=== PATIENT | male | born 1995 | race Hispanic/Latino ===

== ENCOUNTER 2018-04-20 19:32 | Emergency (ER) | payer SELFPAY ==
--- NOTE | 2018-04-20 19:50 | EDM.PDOC ---
ED HPI GENERAL MEDICAL PROBLEM - General Chief Complaint: Upper Extremity Injury/Pain Stated Complaint: PT HANDS NUMB Time Seen by Provider: 04/20/18 19:50 Source of Information: Reports: Patient History Limitations: Reports: No Limitations - History of Present Illness INITIAL COMMENTS - FREE TEXT/NARRATIVE: HISTORY AND PHYSICAL: History of present illness: 22-year-old Greek only speaking male presenting to the emergency department with chief complaint of bilateral hand numbness and tingling 2 hours. Patient's brother is present and helps with translation. Patient states that he was driving approximately 2 hours ago and suddenly began to have numbness and tingling in both hands. States that his hands have been clinched ever since and it is difficult for him to even open them. When he presented to the emergency department he states that the numbness and tingling has spread to his forearms and above. He also had some numbness and tingling in his feet and legs. States that he has the sensation that he may . In the emergency room he had 2 episodes of vomiting. Patient denies any stresses in his life or work. He was feeling his normal usual self until the suddenly occurred. Denies any recent illness, fever or chills. Does state that his older brother had a similar episode happen to him but he has never had this problem previously. He denies any chest pain or heaviness. He is having some abdominal pain generalized. This occurred suddenly as well. Denies any dysuria, hematuria, bloody stool, dark tarry stool, headache, vision changes, cough, ear pain, throat pain, shortness of breath, palpitations or recent syncopal episodes. Patient is normally healthy and takes no medication and has no known allergies. On exam patient appears anxious and is mildly diaphoretic. He is rocking in a seated position. Bilateral hands are clenched in a fist. On exam patient states that he cannot open his hands however I am able to open them manually. When I do this he states that he has pain in the anterior aspect of the forearm bilaterally. As soon as I let go of his hands he does contract back into a fist position. Otherwise full neuro exam is unremarkable showing no other focal neurologic deficits. Patient has generalized abdominal tenderness but specifically in the right upper quadrant and epigastric area. Abdomen is soft, nondistended, nonrigid. There are positive all sounds in all 4 quadrants. No other significant findings. Review of systems: As per history of present illness and below otherwise all systems reviewed and negative. Past medical history: As per history of present illness and as reviewed below otherwise noncontributory. Surgical history: As per history of present illness and as reviewed below otherwise noncontributory. Social history: No reported history of drug or alcohol abuse. Family history: As per history of present illness and as reviewed below otherwise noncontributory. Physical exam: See above H&P HEENT: Atraumatic, normocephalic, pupils reactive, negative for conjunctival pallor or scleral icterus, mucous membranes moist, throat clear, neck supple, nontender, trachea midline. Lungs: Clear to auscultation, breath sounds equal bilaterally, chest nontender. Heart: S1S2, regular, negative for clicks, rubs, or JVD. Abdomen: Soft, nondistended, RUQ and epigastric tenderness. Negative for masses or hepatosplenomegaly. Negative for costovertebral tenderness. Pelvis: Stable nontender. Genitourinary: Deferred. Rectal: Deferred. Extremities: Atraumatic, negative for cords or calf pain. Neurovascular unremarkable. Neuro: Awake, alert, oriented. Cranial nerves II through XII unremarkable. Cerebellum unremarkable. See above H&P Diagnostics: CBC, CMP, lipase, UA/UC, UDS, troponin, CT abdomen and pelvis, EKG Therapeutics: 1 L normal saline 1, 1 mg Ativan IV 1 Impression: Anxiety attack Nausea with vomiting Plan: CBC did show some mild leukocytosis of 14,000 however this was most likely secondary to his nausea and vomiting as he remained afebrile and had no other symptoms. No other significant findings were seen including on CT of abd/pelvis His symptoms most likely suggest an anxiety attack. Patient had significant improvement after 1 mg Ativan. He was able to open his hands and had no more pain. Suspect that he did have some component of hyperventilation which may have contributed to his contractures in his hands. I did explain this to the patient and suggested that he follow-up with her primary care provider and possibly get started on a antidepressant that may help with his anxiety. Patient was in full understanding and was instructed to return to emergency department if he had a new or worsening symptoms. Definitive disposition and diagnosis as appropriate pending reevaluation and review of above. bilateral hands Pain Score (Numeric/FACES): 10 - Related Data Allergies Allergy/AdvReac Type Severity Reaction Status Date / Time No Known Allergies Allergy Verified 04/20/18 19:50 Home Meds: Home Meds . [No Known Home Meds] 04/20/18 [History] Review of Systems - Review of Systems Review Of Systems: ROS reveals no pertinent complaints other than HPI. ED EXAM, GENERAL - Physical Exam Exam: See Below Course - Vital Signs Last Recorded V/S: Last Vital Signs Temp 97.5 F 04/20/18 19:47 Pulse 98 04/20/18 21:59 Resp 19 04/20/18 19:47 BP 119/76 04/20/18 21:59 Pulse Ox 98 04/20/18 21:59 - Orders/Labs/Meds Orders: Active Orders 24 hr Category Date Time Status EKG Documentation Completion [RC] STAT Care 04/20/18 20:35 Active Abdomen Pelvis w Cont [CT] Stat Exams 04/20/18 20:16 Taken CULTURE URINE [RM] Stat Lab 04/20/18 20:58 Received Sodium Chloride 0.9% [Saline Flush] Med 04/20/18 20:16 Active 10 ml FLUSH ASDIRECTED PRN Sodium Chloride 0.9% [Saline Flush] Med 04/20/18 20:16 Active 2.5 ml FLUSH ASDIRECTED PRN Sodium Chloride 0.9% [Saline Flush] Med 04/20/18 20:16 Active 2.5 ml FLUSH ASDIRECTED PRN Saline Lock Insert [OM.PC] Stat Oth 04/20/18 20:16 Ordered Medication Orders Sodium Chloride (Saline Flush) 2.5 ml FLUSH ASDIRECTED PRN PRN Reason: Keep Vein Open Last Admin: 04/20/18 20:33 Dose: 2.5 ml Sodium Chloride (Saline Flush) 10 ml FLUSH ASDIRECTED PRN PRN Reason: Keep Vein Open Last Admin: 04/20/18 20:33 Dose: 10 ml Sodium Chloride (Saline Flush) 2.5 ml FLUSH ASDIRECTED PRN PRN Reason: Keep Vein Open Last Admin: 04/20/18 20:33 Dose: 2.5 ml Labs: Laboratory Tests 04/20/18 04/20/18 04/20/18 Range/Units 20:22 20:22 20:22 WBC 14.43 H (4.0-11.0) K/uL RBC 5.56 (4.50-5.90) M/uL Hgb 17.5 H (13.0-17.0) g/dL Hct 49.2 (38.0-50.0) % MCV 88.5 (80.0-98.0) fL MCH 31.5 (27.0-32.0) pg MCHC 35.6 (31.0-37.0) g/dL RDW Std Deviation 42.3 (28.0-62.0) fl RDW Coeff of Sb 13 (11.0-15.0) % Plt Count 309 (150-400) K/uL MPV 10.90 (7.40-12.00) fL Neut % (Auto) 83.0 H (48.0-80.0) % Lymph % (Auto) 10.2 L (16.0-40.0) % Haines % (Auto) 5.9 (0.0-15.0) % Eos % (Auto) 0.1 (0.0-7.0) % Baso % (Auto) 0.8 (0.0-1.5) % Neut # (Auto) 12.0 H (1.4-5.7) K/uL Lymph # (Auto) 1.5 (0.6-2.4) K/uL Haines # (Auto) 0.9 H (0.0-0.8) K/uL Eos # (Auto) 0.0 (0.0-0.7) K/uL Baso # (Auto) 0.1 (0.0-0.1) K/uL Nucleated RBC % 0.0 /100WBC Nucleated RBCs # 0 K/uL ABG Carboxyhemoglobin 1.6 (0-15) % Sodium 143 (136-148) mmol/L Potassium 3.4 L (3.5-5.1) mmol/L Chloride 98 (98-107) mmol/L Carbon Dioxide 20.8 L (21.0-32.0) mmol/L BUN 12 (7.0-18.0) mg/dL Creatinine 1.1 (0.8-1.3) mg/dL Est Cr Clr Drug Dosing 73.23 mL/min Estimated GFR (MDRD) > 60.0 ml/min Glucose 178 H (74-106) mg/dL Calcium 9.8 (8.5-10.1) mg/dL Total Bilirubin 0.8 (0.2-1.0) mg/dL AST 31 (15-37) IU/L ALT 55 (14-63) IU/L Alkaline Phosphatase 71 (46-116) U/L Troponin I (0.000-0.056) ng/mL Total Protein 9.3 H (6.4-8.2) g/dL Albumin 5.4 H (3.4-5.0) g/dL Globulin 3.9 H (2.0-3.5) g/dL Albumin/Globulin Ratio 1.4 (1.3-2.8) Lipase 66 L (73-393) U/L Urine Color Urine Appearance Urine pH (5.0-8.0) Ur Specific Crittenden (1.001-1.035) Urine Protein (NEGATIVE) mg/dL Urine Glucose (UA) (NEGATIVE) mg/dL Urine Ketones (NEGATIVE) mg/dL Urine Occult Blood (NEGATIVE) Urine Nitrite (NEGATIVE) Urine Bilirubin (NEGATIVE) Urine Urobilinogen (<2.0) EU/dL Ur Leukocyte Esterase (NEGATIVE) Urine RBC (0-2/HPF) Urine WBC (0-5/HPF) Ur Epithelial Cells (NONE-FEW) Amorphous Sediment (NEGATIVE) Urine Bacteria (NEGATIVE) Urine Mucus (NONE-MOD) Urine Opiates Screen (NEGATIVE) Ur Oxycodone Screen (NEGATIVE) Urine Methadone Screen (NEGATIVE) Ur Barbiturates Screen (NEGATIVE) Ur Phencyclidine Scrn (NEGATIVE) Ur Amphetamine Screen (NEGATIVE) U Methamphetamines Scrn (NEGATIVE) U Benzodiazepines Scrn (NEGATIVE) U Cocaine Metab Screen (NEGATIVE) U Marijuana (THC) Screen (NEGATIVE) 04/20/18 04/20/18 04/20/18 Range/Units 20:22 20:58 20:58 WBC (4.0-11.0) K/uL RBC (4.50-5.90) M/uL Hgb (13.0-17.0) g/dL Hct (38.0-50.0) % MCV (80.0-98.0) fL MCH (27.0-32.0) pg MCHC (31.0-37.0) g/dL RDW Std Deviation (28.0-62.0) fl RDW Coeff of Sb (11.0-15.0) % Plt Count (150-400) K/uL MPV (7.40-12.00) fL Neut % (Auto) (48.0-80.0) % Lymph % (Auto) (16.0-40.0) % Haines % (Auto) (0.0-15.0) % Eos % (Auto) (0.0-7.0) % Baso % (Auto) (0.0-1.5) % Neut # (Auto) (1.4-5.7) K/uL Lymph # (Auto) (0.6-2.4) K/uL Haines # (Auto) (0.0-0.8) K/uL Eos # (Auto) (0.0-0.7) K/uL Baso # (Auto) (0.0-0.1) K/uL Nucleated RBC % /100WBC Nucleated RBCs # K/uL ABG Carboxyhemoglobin (0-15) % Sodium (136-148) mmol/L Potassium (3.5-5.1) mmol/L Chloride (98-107) mmol/L Carbon Dioxide (21.0-32.0) mmol/L BUN (7.0-18.0) mg/dL Creatinine (0.8-1.3) mg/dL Est Cr Clr Drug Dosing mL/min Estimated GFR (MDRD) ml/min Glucose (74-106) mg/dL Calcium (8.5-10.1) mg/dL Total Bilirubin (0.2-1.0) mg/dL AST (15-37) IU/L ALT (14-63) IU/L Alkaline Phosphatase (46-116) U/L Troponin I < 0.050 (0.000-0.056) ng/mL Total Protein (6.4-8.2) g/dL Albumin (3.4-5.0) g/dL Globulin (2.0-3.5) g/dL Albumin/Globulin Ratio (1.3-2.8) Lipase (73-393) U/L Urine Color DARK YELLOW Urine Appearance HAZY Urine pH 6.0 (5.0-8.0) Ur Specific Crittenden >= 1.030 (1.001-1.035) Urine Protein 100 (NEGATIVE) mg/dL Urine Glucose (UA) NEGATIVE (NEGATIVE) mg/dL Urine Ketones 40 H (NEGATIVE) mg/dL Urine Occult Blood NEGATIVE (NEGATIVE) Urine Nitrite NEGATIVE (NEGATIVE) Urine Bilirubin NEGATIVE (NEGATIVE) Urine Urobilinogen 0.2 (<2.0) EU/dL Ur Leukocyte Esterase NEGATIVE (NEGATIVE) Urine RBC 0-2 (0-2/HPF) Urine WBC 0-3 (0-5/HPF) Ur Epithelial Cells RARE (NONE-FEW) Amorphous Sediment LIGHT (NEGATIVE) Urine Bacteria FEW (NEGATIVE) Urine Mucus LIGHT (NONE-MOD) Urine Opiates Screen NEGATIVE (NEGATIVE) Ur Oxycodone Screen NEGATIVE (NEGATIVE) Urine Methadone Screen NEGATIVE (NEGATIVE) Ur Barbiturates Screen NEGATIVE (NEGATIVE) Ur Phencyclidine Scrn NEGATIVE (NEGATIVE) Ur Amphetamine Screen NEGATIVE (NEGATIVE) U Methamphetamines Scrn NEGATIVE (NEGATIVE) U Benzodiazepines Scrn NEGATIVE (NEGATIVE) U Cocaine Metab Screen NEGATIVE (NEGATIVE) U Marijuana (THC) Screen NEGATIVE (NEGATIVE) Meds: Medications Generic Name Dose Route Start Last Admin Trade Name Freq PRN Reason Stop Dose Admin Sodium Chloride 2.5 ml 04/20/18 20:16 04/20/18 20:33 Saline Flush FLUSH 2.5 ml ASDIRECTED PRN Administration Keep Vein Open Sodium Chloride 10 ml 04/20/18 20:16 04/20/18 20:33 Saline Flush FLUSH 10 ml ASDIRECTED PRN Administration Keep Vein Open Sodium Chloride 2.5 ml 04/20/18 20:16 04/20/18 20:33 Saline Flush FLUSH 2.5 ml ASDIRECTED PRN Administration Keep Vein Open Discontinued Medications Generic Name Dose Route Start Last Admin Trade Name Freq PRN Reason Stop Dose Admin Sodium Chloride 1,000 mls @ 999 mls/hr 04/20/18 20:16 04/20/18 20:33 Normal Saline IV 04/20/18 21:16 999 mls/hr BOLUS ONE Administration Iopamidol 100 ml 04/20/18 21:45 04/20/18 21:45 Isovue Multipack-370 (76%) IVPUSH 04/20/18 21:46 100 ml ONETIME STA Administration Lorazepam 1 mg 04/20/18 19:55 04/20/18 20:00 Ativan PO 04/20/18 19:56 1 mg ONETIME ONE Administration Lorazepam 1 mg 04/20/18 20:06 04/20/18 20:38 Ativan PO 04/20/18 20:07 Not Given ONETIME ONE Lorazepam 1 mg 04/20/18 20:16 04/20/18 20:38 Ativan IVPUSH 04/20/18 20:17 1 mg ONETIME ONE Administration Ondansetron HCl 4 mg 04/20/18 20:16 04/20/18 20:33 Zofran IVPUSH 04/20/18 20:17 4 mg ONETIME ONE Administration Departure - Departure Time of Disposition: 22:15 Disposition: Home, Self-Care 01 Condition: Good Clinical Impression: Anxiety attack Nausea and vomiting Qualifiers: Vomiting type: unspecified Vomiting Intractability: non-intractable Qualified Code(s): R11.2 - Nausea with vomiting, unspecified - Discharge Information Referrals: PCP,None [Primary Care Provider] - Forms: ED Department Discharge Additional Instructions: My general discharge The following information is given to patients seen in the emergency department who are being discharged to home. This information is to outline your options for follow-up care. We provide all patients seen in our emergency department with a follow-up referral. The need for follow-up, as well as the timing and circumstances, are variable depending upon the specifics of your emergency department visit. If you don't have a primary care physician on staff, we will provide you with a referral. We always advise you to contact your personal physician following an emergency department visit to inform them of the circumstance of the visit and for follow-up with them and/or the need for any referrals to a consulting specialist. The emergency department will also refer you to a specialist when appropriate. This referral assures that you have the opportunity for follow-up care with a specialist. All of these measure are taken in an effort to provide you with optimal care, which includes your follow-up. Under all circumstances we always encourage you to contact your private physician who remains a resource for coordinating your care. When calling for follow-up care, please make the office aware that this follow-up is from your recent emergency room visit. If for any reason you are refused follow-up, please contact the [facility] Emergency Department at and asked to speak to the emergency department charge nurse. NATALIIA [facility] [address] [place] [address] [facility] [address] [place] [address] Please call one of the about numbers on Saturday to schedule a follow-up appointment with a primary care physician. Be sure to tell them that you were seen in the emergency department and they wish for you to be seen as soon as possible. Return to the emergency department if you have any new or worsening symptoms. - My Orders Last 24 Hours: My Active Orders 04/20/18 20:16 Abdomen Pelvis w Cont [CT] Stat Sodium Chloride 0.9% [Saline Flush] 10 ml FLUSH ASDIRECTED PRN Sodium Chloride 0.9% [Saline Flush] 2.5 ml FLUSH ASDIRECTED PRN Sodium Chloride 0.9% [Saline Flush] 2.5 ml FLUSH ASDIRECTED PRN Saline Lock Insert [OM.PC] Stat 04/20/18 20:35 EKG Documentation Completion [RC] STAT 04/20/18 20:58 CULTURE URINE [RM] Stat - Assessment/Plan Last 24 Hours: My Active Orders 04/20/18 20:16 Abdomen Pelvis w Cont [CT] Stat Sodium Chloride 0.9% [Saline Flush] 10 ml FLUSH ASDIRECTED PRN Sodium Chloride 0.9% [Saline Flush] 2.5 ml FLUSH ASDIRECTED PRN Sodium Chloride 0.9% [Saline Flush] 2.5 ml FLUSH ASDIRECTED PRN Saline Lock Insert [OM.PC] Stat 04/20/18 20:35 EKG Documentation Completion [RC] STAT 04/20/18 20:58 CULTURE URINE [RM] Stat
[2018-04-20] MEDS ORDERED: LORazepam 1 MG Tab PO ONE (19:55)
[2018-04-20] MEDS: LORazepam 1 MG Tab PO ONE ×2 (20:13→20:38)
[2018-04-20] MEDS ORDERED: Sodium Chloride 0.9% 10 ML Syringe FLUSH PRN (20:16)
[2018-04-20] MEDS ORDERED: Sodium Chloride 0.9% 2.5 ML Syringe FLUSH PRN ×2 (20:16)
[2018-04-20] MEDS ORDERED: Sodium Chloride 0.9% 1,000 ML IV ONE (20:16)
[2018-04-20] MEDS ORDERED: Ondansetron 4 MG/2 ML SDV IVPUSH ONE (20:16)
[2018-04-20] MEDS: LORazepam 2 MG/ML SDV IVPUSH ONE ×3 (20:33→20:38)
[2018-04-20 21:02] LABS: CHLORIDE,CL 98 mmol/L (98-107); SODIUM,NA 143 mmol/L (136-148)
[2018-04-20] MEDS ORDERED: Iopamidol 755 MG/ML 200 ML Multipack Bottle IVPUSH STA (21:45)
--- NOTE | 2018-04-22 09:36 | CT ---
EXAM DATE: 04/20/18 PATIENT'S AGE: 22 Patient: TARA FAM Facility: [place], [place] Site . Site : 1995 Study: CT Abdomen/Pelvis [id number] 9:50:14 PM Ordering Physician: Ben Sanchez Final Report: HISTORY: Abdominal pain. TECHNIQUE: Intravenous contrast enhanced CT of the abdomen and pelvis. 100 mL of Isovue- 370 intravenous contrast was administered. COMPARISON: No prior. FINDINGS: Mild fatty infiltration of the liver with additional more focal fatty infiltration within the left hepatic lobe adjacent to the falciform ligament. No biliary ductal dilatation. Gallbladder does not appear overly distended. Spleen size within normal limits. Adrenal glands are normal. No focal pancreatic abnormality or acute peripancreatic inflammatory change. Symmetric nephrograms. No renal mass or hydronephrosis. Urinary bladder is contracted. - No small bowel obstruction. No appendicitis. The colon is contracted. No diverticulitis. No fluid collection. No free air. No aortic aneurysm. No adenopathy. - No acute bony abnormality. - Calcified granulomata within the lung bases. No consolidation. IMPRESSION: 1. No specific identified cause of the patient`s abdominal pain. 2. Mild diffuse fatty infiltration of the liver. 3. Findings of prior granulomatous disease. Dictated by Yuriy Garcia MD @ 04/20/2018 10:05:53 PM Please note that all CT scans at this facility use dose modulation, iterative reconstruction, and/or weight-based dosing when appropriate to reduce radiation dose to as low as reasonably achievable. Dictated by: Yuriy Garcia MD @ 04/20/2018 22:05:59 (Electronic Signature) Report Signed by Proxy. [facility]ITAL[facility]ia
== END 2018-04-20 22:25 | disposition home or self-care (01) ==
LOC: MW.ED 19:32
DX: F41.9 Anxiety disorder, unspecified (principal); R11.2 Nausea with vomiting, unspecified; R10.84 Generalized abdominal pain
CPT/HCPCS: 36415; 74177; 80053; 80305; 81001; 82375; 83690; 84484; 85025; 87086; 96361; 96374; 96375; 99284; A9270; J2405; J7040; Q9967; J2060